=== PATIENT | female | born 1980 | race Caucasian/White ===

== ENCOUNTER → 2021-06-17 | Outpatient (CLI) | payer BC ==
[~2021-06-17] MED LIST: PREN1TAB60 PO
== END | disposition home or self-care (01) ==
LOC: CFH 13:18
PROVIDERS: ATTEND Student in an Organized Health Care Education/Training Program
DX: N63.21 Unspecified lump in the left breast, upper outer quadrant (principal)
CPT/HCPCS: 76642; 77062; 77066; G0279